=== PATIENT | female | born 1980 | race Caucasian/White ===

== ENCOUNTER 2016-10-15 07:29 | Day surgery (SDC) | payer OTHER ==
[~2016-10-15 07:29] MED LIST: RINGERS SOLUTION,LACTATED 1,000 ML IV PRN
[2016-10-15] MEDS ORDERED: RINGERS SOLUTION,LACTATED 1,000 ML IV ONE ×2 (07:40→09:05)
[2016-10-15 08:29] LABS: Hematocrit 34.8 % (37.0-47.0); Hemoglobin 11.6 gm/dL (12.5-16.0); Mean Cell Volume 82.1 fl (78-100); Mean Corpuscular Hemoglobin 27.4 pg (27-31); Mean Corpuscular Hgb Conc 33.3 g/dl (32-36); Mean Platelet Volume 8.7 fl (6.0-9.5); Neutrophil # 4.7 K/mm3 (1.3-6.0); Neutrophil % 51.3 % (42-75.0); Platelet Count 392 K/mm3 (150-450); Red Blood Count 4.24 M/mm3 (4.2-5.4); Red Cell Distribution Width 12.5 % (11.5-14.0); White Blood Count 9.2 K/mm3 (4.0-10.5)
[2016-10-15] MEDS ORDERED: oxyCODONE HCL/ACETAMINOPHEN 1 TAB TABLET PO PRN (09:46)
[2016-10-15] MEDS ORDERED: IBUPROFEN 600 MG TABLET PO PRN (09:47)
[2016-10-15 10:32] VITALS: BP 166/95
--- NOTE | 2016-10-15 16:29 | OR ---
Operative Report - Dictated Report Narrative: Operative Report 10/15/16 Hysteroscopy Dilatation and Curettage Preoperative Diagnosis: Menorrhagia, Abnormal Appearance of the Endometrium Postoperative Diagnosis: Menorrhagia, Abnormal Appearance of the Endometrium Procedure: Hysteroscopy Dilatation and Curettage Surgeon: Alice Art M.D. Anesthesia: Facundo Riley CRNA, IV sedation Findings: Uterine sound is 8 cm. There is no evidence of endometrial polyps or submucosal fibroid. Fluids: 300 ml EBL: Minimal Drains: None Complications: None Condition: Stable Pathology: Endometrial curettings Procedure: The patient was taken to the operating room with IV fluids running. She was placed in the dorsal lithotomy position after anesthesia was induced. A bivalve speculum was placed in the vagina. The anterior lip of the cervix was grasped with a single-tooth tenaculum. Uterine sound was passed into the endometrial cavity with ease. Uterine sound was 8 cm. The cervix was dilated with Stevan dilators. The hysteroscope was introduced into the endometrial cavity. The cavity was distended with normal saline. [place] were visualized bilaterally. There is no evidence of endometrial polyps or submucosal fibroid. The hysteroscope was removed. The cavity was sharply curetted without difficulty. The hysteroscope was once again introduced into the cavity. The cavity was completely curetted. The hysteroscope was removed. The single- tooth tenaculum was removed. Sites were hemostatic. The speculum was removed from the vagina. Sponge counts were correct 2. The patient tolerated the procedure well.
== END 2016-10-15 07:30 | disposition home or self-care (01) ==
LOC: AMB 07:29
PROVIDERS: ATTEND Obstetrics & Gynecology
PROC: 0UDB8ZX Extraction of Endometrium, Via Natural or Artificial Opening Endoscopic, Diagnostic (ICD-10-PCS; principal; 2016-10-15 09:00)
DX: N92.0 Excessive and frequent menstruation with regular cycle (principal); E11.9 Type 2 diabetes mellitus without complications; F39 Unspecified mood [affective] disorder; Z68.34 Body mass index [BMI] 34.0-34.9, adult